=== PATIENT | female | born 1975 | race African-American/Black ===

== ENCOUNTER 2020-12-26 07:06 | Emergency (ER) | payer OTHER ==
[~2020-12-26] VITALS: Ht 175.3 cm; Wt 72.6 kg
[2020-12-26 07:10] VITALS: BP 140/106
[2020-12-26] MEDS ORDERED: LORazepam 2 MG/ML VIAL IVP ONE (07:35)
[2020-12-26] MEDS ORDERED: chlordiazePOXIDE 25 MG CAP PO SCH ×2 (07:35→09:00)
[2020-12-26] MEDS ORDERED: chlordiazePOXIDE 25 MG CAP ONE (08:01)
[2020-12-26] MEDS ORDERED: NACL 0.9% 2,000 ML IV SCH (09:10)
[2020-12-26] MEDS ORDERED: LORazepam 1 MG TAB PO ONE (10:35)
[2020-12-26 11:00] VITALS: BP 126/79
== END 2020-12-26 11:29 | disposition home or self-care (01) ==
LOC: MED 07:06
DX: F10.129 Alcohol abuse with intoxication, unspecified (principal); R11.10 Vomiting, unspecified; Y90.9 Presence of alcohol in blood, level not specified
CPT/HCPCS: 96361; 96374; 99283; J2060

== ENCOUNTER 2020-12-27 00:15 | Emergency (ER) | payer OTHER ==
[~2020-12-27] VITALS: Ht 175.3 cm; Wt 72.6 kg
[2020-12-27 00:26] VITALS: BP 136/98
--- NOTE | 2020-12-27 00:26 | NUR ---
TO BED AMBULATORY
--- NOTE | 2020-12-27 00:33 | NUR ---
RECEIVED IN BED 4, AMBULATORY, WITH C/O LEFT KNEE PAIN. Addendum: 12/27/20 at 0036 by DEEJAY RECEIVED IN BED 4 VIA W/C FROM TRIAGE WITH C/O RIGHT KNEE PAIN AFTER FALLING DOWN STAIRS. WAS SEEN YESTERDAY AM FOR C/O " HELP WITH ALCOHOL WITHDRAWAL". IS AMBULATORY, IN NAD.
[2020-12-27] MEDS: KETOROLAC 60 MG/2 ML VIAL IM ONE (00:54)
--- NOTE | 2020-12-27 01:02 | NUR ---
PORTABLE XRAY DONE
--- NOTE | 2020-12-27 01:13 | NUR ---
AMBULATES TO BR WITH STEADY GAIT
--- NOTE | 2020-12-27 01:20 | NUR ---
PT REFUSED AND DENIED INTERVENTIONS. DENIED COPIES OF ACI AND RX
[2020-12-27 01:23] VITALS: BP 136/98
--- NOTE | 2020-12-27 01:23 | NUR ---
Patient discharged with v/s stable. Written and verbal after care instructions given and explained. Patient alert, oriented and verbalized understanding of instructions. Ambulatory with steady gait. All questions addressed prior to discharge. ID band removed. Patient advised to follow up with PMD. Rx of MOTRIN given. Patient educated on indication of medication including possible reaction and side effects. Opportunity to ask questions provided and answered. Addendum: 12/27/20 at 0130 by DEEJAY Patient discharged with v/s stable. Written and verbal after care instructions given and explained. Patient alert, oriented and verbalized understanding of instructions. Ambulatory with steady gait. All questions addressed prior to discharge. ID band removed. Patient advised to follow up with PMD. Rx of MOTRIN REFUSED. Patient educated on indication AND BENEFIT of medication including possible reaction and side effects. Opportunity to ask questions.
== END 2020-12-27 01:23 | disposition home or self-care (01) ==
LOC: MED 00:15
DX: S86.911A Strain of unspecified muscle(s) and tendon(s) at lower leg level, right leg, initial encounter (principal); W18.39XA Other fall on same level, initial encounter; Y93.89 Activity, other specified; Y92.89 Other specified places as the place of occurrence of the external cause; Y99.8 Other external cause status
CPT/HCPCS: 73562; 96372; 99283; J1885

== ENCOUNTER 2021-01-21 00:45 | Emergency (ER) | payer OTHER ==
[~2021-01-21] VITALS: Ht 175.3 cm; Wt 61.2 kg
[2021-01-21 00:53] VITALS: BP 94/62
--- NOTE | 2021-01-21 01:00 | NUR ---
PT AMBULATED TO BED #6
--- NOTE | 2021-01-21 01:15 | NUR ---
45 Y/O FEMALE C/O INSOMINA X3 DAYS. INCREASE IN ALCHOL CONSUMPTION. DENIES RECREATIONAL DRUGS. PT STATES 10/10 BURNING PAIN ALL OVER. PT STATES SHE IS CURRENTLY HAVING AN ANXIETY ATTACK MEDHX- HTN, DEPRESSION, PTSD, SLEEP DISORDER. TIERNEY
--- NOTE | 2021-01-21 01:20 | NUR ---
Dr. Ewing examining patient.
[2021-01-21] MEDS ORDERED: diphenhydrAMINE 50 MG/ML VIAL IM ONE (01:25)
[2021-01-21] MEDS ORDERED: PROCHLORPERAZINE 10 MG/2 ML VIAL IM ONE (01:25)
[2021-01-21 02:00] VITALS: BP 94/62
--- NOTE | 2021-01-21 02:00 | NUR ---
Patient discharged with v/s stable. Written and verbal after care instructions given and explained. Patient verbalized understanding. Ambulatory with steady gait. All questions addressed prior to discharge. Advised to follow up with PMD.
== END 2021-01-21 02:00 | disposition home or self-care (01) ==
LOC: MED 00:45
DX: G47.00 Insomnia, unspecified (principal); M79.10 Myalgia, unspecified site
CPT/HCPCS: 96372; 99284; J0780; J1200

== ENCOUNTER 2021-01-21 19:22 | Emergency (ER) | payer OTHER ==
[~2021-01-21] VITALS: Ht 175.3 cm; Wt 74.8 kg
[2021-01-21 19:27] VITALS: BP 121/77
[2021-01-21] MEDS ORDERED: NACL 0.9% 1,000 ML IV ONE (19:35)
[2021-01-21] MEDS ORDERED: KETOROLAC 30 MG/ML VIAL IVP ONE (20:00)
[2021-01-21] MEDS ORDERED: diphenhydrAMINE 50 MG/ML VIAL ONE (20:52)
[2021-01-21] MEDS ORDERED: diphenhydrAMINE 50 MG/ML VIAL IVP ONE (20:55)
[2021-01-21 21:28] VITALS: BP 121/77
== END 2021-01-21 21:28 | disposition home or self-care (01) ==
LOC: MED 19:22
DX: M79.10 Myalgia, unspecified site (principal); R50.9 Fever, unspecified
CPT/HCPCS: 96361; 96374; 96375; 99284; J1200; J1885; J7030

== ENCOUNTER 2021-02-07 08:31 | Emergency (ER) | payer OTHER ==
[~2021-02-07] VITALS: Ht 175.3 cm; Wt 73.9 kg
[2021-02-07 08:39] VITALS: BP 121/77
[2021-02-07] MEDS ORDERED: NACL 0.9% 1,000 ML IV ONE ×2 (09:10→10:10)
[2021-02-07] MEDS ORDERED: KETOROLAC 30 MG/ML VIAL IVP ONE (09:10)
[2021-02-07 09:23] LABS: BASOPHILS % (AUTO) 1.3 % (0.0-2.0); EOSINOPHILS % (AUTO) 0.6 % (0.0-4.0); HEMATOCRIT 40.5 % (36-48); HEMOGLOBIN 13.8 g/dL (12.0-16.0); LYMPHOCYTES # (AUTO) 1.9 K/uL (2.5-16.5); LYMPHOCYTES % (AUTO) 49.9 % (20.5-51.1); MEAN CORPUSCULAR HEMOGLOBIN 32 pg (27-31); MEAN CORPUSCULAR HGB CONC 34 g/dL (33-37); MEAN CORPUSCULAR VOLUME 93.9 fL (80-94); MONOCYTES # (AUTO) 0.4 K/uL (0.8-1.0); MONOCYTES % (AUTO) 9.4 % (1.7-9.3); NEUTROPHILS # (AUTO) 1.5 K/uL (1.8-7.7); NEUTROPHILS % (AUTO) 38.8 % (42.2-75.2); PLATELET COUNT (AUTO) 271 K/uL (140-450); RED BLOOD CELL COUNT(AUTO) 4.32 MIL/uL (4.20-5.40); RED CELL DISTRIBUTION WIDTH 16.5 % (11.6-13.7); WHITE BLOOD COUNT (AUTO) 3.8 K/uL (4.8-10.8)
[2021-02-07 09:39] LABS: ALBUMIN 3.7 g/dL (3.4-5.0); ANION GAP 15.5 (8-16); ASPARTATE AMINOTRANSFERASE 48 U/L (15-37); CARBON DIOXIDE 25.6 mmol/L (21-32); CHLORIDE 101 mmol/L (98-107); GFR ARICAN-AMERICAN 77 mL/min (>90); GLUCOSE 90 mg/dL (74-106); POTASSIUM 4.1 mmol/L (3.5-5.1); SODIUM SERUM 138 mmol/L (136-145); UREA NITROGEN, BLOOD 17 mg/dL (7-18)
--- NOTE | 2021-02-07 09:47 | NUR ---
45 YEAR OLD FEMALE STATES THAT SHE HAS BEEN DRINKING ALOT MORE ALCOHOL LATELY, ESPECIALLY THE LAST 4 DAYS. PT STATES THAT SHE WANTS HELP AND HAS BEEN UNABLE TO EAT OR DRINK ANYTHING. PT STATES ALOT OF BODYACHES AND PAIN. PT AOX4, BREATHING EVEN AND UNLABORED, SKIN WARM AND DRY. BED IN LOWEST POSITION, LOCKED, BED RAIL UPX1. PMH - DENIES ALLERGIES - NKA
[2021-02-07 10:01] LABS: ACETAMINOPHEN < 0.5 ug/ml (10-30); SALICYLATE < 2.8 mg/dL (2.8-20.0)
--- NOTE | 2021-02-07 10:29 | NUR ---
PT STILL UNABLE TO URINATE, ERMD MADE AWARE
[2021-02-07] MEDS ORDERED: NAPR-54 PO (10:41)
[2021-02-07 10:59] LABS: BARBITURATE, URINE NEGATIVE ng/ml (NEG <=200); BENZODIAZEPINE, URINE POSITIVE ng/mL (NEG <=200); CANNABINOID, URINE NEGATIVE ng/mL (NEG <=50); COCAINE, URINE NEGATIVE ng/mL (NEG <=300); OPIATE, URINE NEGATIVE ng/mL (NEG <=2000); PHENCYCLIDINE SCREEN,URINE NEGATIVE ng/mL (NEG <=25)
[2021-02-07 11:24] VITALS: BP 121/77
--- NOTE | 2021-02-07 11:25 | NUR ---
Patient discharged with v/s stable. Written and verbal after care instructions given and explained. Patient alert, oriented and verbalized understanding of instructions. Ambulatory with steady gait. All questions addressed prior to discharge. ID band removed. Patient advised to follow up with PMD. Rx of NAPROXEN 500MG PO PRN PAIN given. Patient educated on indication of medication including possible reaction and side effects. Opportunity to ask questions provided and answered.
--- NOTE | 2021-02-10 08:09 | NUR ---
LATE ENTRY -- NS INFUSION COMPLETED 1113 02/07/21
== END 2021-02-07 11:25 | disposition home or self-care (01) ==
LOC: MED 08:31
DX: F10.129 Alcohol abuse with intoxication, unspecified (principal); R53.1 Weakness; Z79.899 Other long term (current) drug therapy
CPT/HCPCS: 36415; 80053; 80305; 85025; 93005; 96361; 96374; 99284; G0480; G0482; J1885; J7030

== ENCOUNTER 2021-07-08 06:50 | Emergency (ER) | payer OTHER ==
[~2021-07-08] VITALS: Ht 172.7 cm; Wt 69.9 kg
[~2021-07-08 06:50] MED LIST: NAPR-54 PO
[2021-07-08 07:16] VITALS: BP 144/114
--- NOTE | 2021-07-08 07:20 | NUR ---
PT TO LOBBY.
--- NOTE | 2021-07-08 07:24 | NUR ---
45 Y/O FEMALE C/O BODY PAIN 09/04 STATES HER FRIEND GAVE HER SOME "JELLY-LIKE SUBSTANCE" FOR ALCOHOL WITHDRAWS. DENIES N/V, DENIES FEVER/CHILLS. PT UNABLE TO RECALL WHAT WAS GIVEN. STATES SHE USUALLY DRINKS 2 BOTTLES OF WINE A DAY. PMH: DEPRESSION NKA
[2021-07-08] MEDS ORDERED: KETOROLAC 30 MG/ML VIAL IVP ONE (07:55)
[2021-07-08] MEDS ORDERED: NACL 0.9% 1,000 ML IV ONE (07:55)
--- NOTE | 2021-07-08 07:58 | NUR ---
DR. QUICK WITH PT IN [facility] FOR ASSESSMENT.
--- NOTE | 2021-07-08 08:01 | NUR ---
PT TO ASHISH William
[2021-07-08] MEDS ORDERED: LORazepam 2 MG/ML VIAL IVP ONE (08:35)
[2021-07-08] MEDS ORDERED: LORazepam 2 MG/ML VIAL ONE (08:35)
--- NOTE | 2021-07-08 08:58 | NUR ---
Pt ambulated from chair A to bed 12.
--- NOTE | 2021-07-08 10:39 | NUR ---
Patient reports minor relief after Toradol IVP; states 7/10 to overall body pain but reports L hip pain remains 10/10.
[2021-07-08] MEDS ORDERED: MORPHINE SULFATE 4 MG/ML SYR IVP ONE (10:50)
[2021-07-08] MEDS ORDERED: MORPHINE SULFATE 4 MG/ML SYR ONE (10:50)
--- NOTE | 2021-07-08 11:00 | NUR ---
Patient states minor relief to pain; L hip remains 09/04 "burning/constant." Pt reports taking a "jelly-like substance" indicated for headache which has caused this consistent L hip pain.
--- NOTE | 2021-07-08 12:08 | NUR ---
Patient disconnected from IVF and pvc monitor; ambulated to restroom with steady/even gait.
--- NOTE | 2021-07-08 12:13 | NUR ---
Pt back onto [facility], conveyor monitor and IVF.
--- NOTE | 2021-07-08 12:16 | NUR ---
Dr. Phillip made aware of patient's 10/10 L hip pain; denies recent trauma/falls/injury.
--- NOTE | 2021-07-08 12:17 | NUR ---
Dr. Phillip is reevaluating patient at bedside.
[2021-07-08] MEDS ORDERED: IBUP-2213 PO (12:34)
[2021-07-08] MEDS ORDERED: LIB25 PO (12:34)
[2021-07-08 13:08] VITALS: BP 133/76
--- NOTE | 2021-07-08 13:08 | NUR ---
Patient discharged with v/s stable. Written and verbal after care instructions given and explained. Patient alert, oriented and verbalized understanding of instructions. Ambulatory with steady gait. All questions addressed prior to discharge. ID band removed. Patient advised to follow up with PMD. Rx of Librium, Ibuprofen given. Patient educated on indication of medication including possible reaction and side effects. Opportunity to ask questions provided and answered.
[2021-07-08] MEDS ORDERED: ATA25 PO (14:23)
== END 2021-07-08 13:08 | disposition home or self-care (01) ==
LOC: MED 06:50
DX: M79.10 Myalgia, unspecified site (principal); R11.2 Nausea with vomiting, unspecified; Z79.899 Other long term (current) drug therapy
CPT/HCPCS: 96361; 96374; 96375; 99284; J1885; J2060; J2270; J7030

== ENCOUNTER 2021-07-17 07:39 | Emergency (ER) | payer OTHER ==
[~2021-07-17] VITALS: Ht 172.7 cm; Wt 68.0 kg
[~2021-07-17 07:39] MED LIST changes: +ATA25 PO; +IBUP-2213 PO
[2021-07-17 07:43] VITALS: BP 93/48
[2021-07-17] MEDS ORDERED: LORazepam 1 MG TAB PO ONE (08:00)
--- NOTE | 2021-07-17 08:00 | NUR ---
BIB SELF C/O BODY PAIN, NAUSEA S/P ALCOHOL WITHDRAWAL X 5 DAYS.
--- NOTE | 2021-07-17 08:17 | NUR ---
Maura clay in [facility] - 07/17/21 at 0821 by [email or web address] CHRISTOPHER
--- NOTE | 2021-07-17 08:20 | NUR ---
Maura clay in ED - 07/17/21 at 0838 by MED1 PATIENT ELOPED FROM FACILITY. DISCHARGE INSTRUCTIONS NOT GIVEN TO PATIENT. DR. HERNANDEZ NOTIFIED.
--- NOTE | 2021-07-17 08:49 | NUR ---
PT BACK TO ER. TO ASHISH Shen FOR FURTHER EVALUATION.
[2021-07-17] MEDS ORDERED: NACL 0.9% 1,000 ML IV ONE (08:50)
--- NOTE | 2021-07-17 10:12 | NUR ---
Pt wheelchair assisted from Chair A to bed 07.
--- NOTE | 2021-07-17 10:29 | NUR ---
COLLECTD LABWORK, WALKED TO LAB GAVE TO SARAHI OLMSTEAD TECH.
[2021-07-17 10:43] LABS: BASOPHILS # (AUTO) 0.1 K/uL (0.00-0.22); HEMATOCRIT 40.9 % (36-48); HEMOGLOBIN 13.4 g/dL (12.0-16.0); LYMPHOCYTES # (AUTO) 1.5 K/uL (2.5-16.5); LYMPHOCYTES % (AUTO) 28.5 % (20.5-51.1); MEAN CORPUSCULAR HEMOGLOBIN 34 pg (27-31); MEAN CORPUSCULAR HGB CONC 33 g/dL (33-37); MEAN CORPUSCULAR VOLUME 103.6 fL (80-94); MONOCYTES # (AUTO) 0.4 K/uL (0.8-1.0); MONOCYTES % (AUTO) 8.3 % (1.7-9.3); NEUTROPHILS # (AUTO) 3.3 K/uL (1.8-7.7); NEUTROPHILS % (AUTO) 62.2 % (42.2-75.2); PLATELET COUNT (AUTO) 232 K/uL (140-450); RED BLOOD CELL COUNT(AUTO) 3.94 MIL/uL (4.20-5.40); RED CELL DISTRIBUTION WIDTH 15.6 % (11.6-13.7); WHITE BLOOD COUNT (AUTO) 5.3 K/uL (4.8-10.8)
--- NOTE | 2021-07-17 10:50 | NUR ---
PT STATES SHE WANTS TO AMA, DR. HERNANDEZ MADE AWARE. PT STATES SHE WANTS "SOMETHING FOR PAIN BEFORE AMA".
[2021-07-17 10:56] LABS: ALBUMIN 3.6 g/dL (3.4-5.0); ANION GAP 23.4 (8-16); CARBON DIOXIDE 18.1 mmol/L (21-32); CREATININE 0.9 mg/dL (0.6-1.3); POTASSIUM 4.5 mmol/L (3.5-5.1); TOTAL BILIRUBIN 0.9 mg/dL (0.0-1.0)
[2021-07-17] MEDS ORDERED: KETOROLAC 15 MG/ML VIAL ONE (11:00)
[2021-07-17] MEDS ORDERED: KETOROLAC 30 MG/ML VIAL IVP ONE (11:00)
[2021-07-17 11:11] VITALS: BP 119/72
--- NOTE | 2021-07-17 11:12 | NUR ---
Patient does not wish to proceed with medical care recommended by DR. HERNANDEZ. Patient given information related to possible complications, up to and including , which could occur as a result of leaving hospital at this time. Patient verbalizes understanding of risks involved leaving against medical advice. Patient has signed AMA form.
--- NOTE | 2021-07-19 23:12 | NUR ---
LATE ENTRY- 0.9% NS IVF DISCONTINUED AT 1110
== END 2021-07-17 11:12 | disposition left against medical advice (07) ==
LOC: MED 07:39
DX: F10.129 Alcohol abuse with intoxication, unspecified (principal); Y90.9 Presence of alcohol in blood, level not specified
CPT/HCPCS: 36415; 80053; 84703; 85025; 96361; 96374; 99285; G0482; J1885; J7030

== ENCOUNTER 2022-03-17 04:51 | Emergency (ER) | payer OTHER ==
[~2022-03-17] VITALS: Ht 175.3 cm; Wt 79.4 kg
[2022-03-17 04:54] VITALS: BP 118/88
--- NOTE | 2022-03-17 05:00 | NUR ---
PT TAKEN TO ER BED 04
--- NOTE | 2022-03-17 05:09 | NUR ---
VENUS LEGER AT BEDSIDE EXAMINING PT.
[2022-03-17] MEDS ORDERED: ACETAMINOPHEN 325 MG TAB PO ONE (05:10)
[2022-03-17] MEDS ORDERED: KETOROLAC 60 MG/2 ML VIAL IM ONE (05:10)
--- NOTE | 2022-03-17 05:11 | NUR ---
46 Y/O FEMALE BIBS, C/O BILATERAL LEG PAIN X1 WEEK. PATIENT PRESENTS TO ED AMBULATORY, NO REDNESS, AND NO SWELLING. PT STATES HER PAIN IS SHARP AND RADIATES FROM MID THIGH TO CALVES; IT HAS BEEN GOING ON FOR ABOUT A WEEK BUT GOT STRONGER THE LAST THREE DAYS. PT CLAIMS THAT "THE NICOTINE FROM VAPING IS CAUSING THE PAIN." DENIES N/V/D; SKIN IS PINK/WARM/DRY; AAOX4 WITH EVEN AND STEADY GAIT; LUNGS CLEAR BL; HR EVEN AND REGULAR; PT DENIES ANY FEVER, CP, SOB, OR COUGH AT THIS TIME; PATIENT STATES PAIN OF 10/10 AT THIS TIME; VSS; PATIENT POSITIONED FOR COMFORT; HOB ELEVATED; BEDRAILS UP X2; BED DOWN. ER MD MADE AWARE OF PT STATUS. HX: ANXIETY NKA
[2022-03-17] MEDS ORDERED: NAPR-54 PO (05:12)
--- NOTE | 2022-03-17 05:40 | NUR ---
PT STATES HER PAIN IS LESSENING DUE TO THE MEDS.
[2022-03-17 05:45] VITALS: BP 118/88
--- NOTE | 2022-03-17 05:46 | NUR ---
Patient discharged with v/s stable. Written and verbal after care instructions given and explained. Patient alert, oriented and verbalized understanding of instructions. Ambulatory with steady gait. All questions addressed prior to discharge. ID band removed. Patient advised to follow up with PMD. Rx of NAPROXEN given. Patient educated on indication of medication including possible reaction and side effects. Opportunity to ask questions provided and answered. VSS, A/OX4, AMBULATORY, UNLABORED BREATHING, AND CALM DEMEANOR.
== END 2022-03-17 05:43 | disposition home or self-care (01) ==
LOC: MED 04:51
DX: M79.605 Pain in left leg (principal); M79.604 Pain in right leg; F17.203 Nicotine dependence unspecified, with withdrawal; Z79.1 Long term (current) use of non-steroidal anti-inflammatories (NSAID); Z79.899 Other long term (current) drug therapy
CPT/HCPCS: 96372; 99283; J1885

== ENCOUNTER 2022-06-17 08:37 | Emergency (ER) | payer OTHER ==
[~2022-06-17] VITALS: Ht 175.3 cm; Wt 76.3 kg
[~2022-06-17 08:37] MED LIST changes: -IBUP-2213 PO
[2022-06-17 08:55] VITALS: BP 149/96
--- NOTE | 2022-06-17 09:06 | NUR ---
PT AMB TO BED 12
--- NOTE | 2022-06-17 09:20 | NUR ---
46 y/o female, pt states she consumed a bottle and a half of wine and was given "candy to help her sleep" from her friend last night. pt states this morning she woke up nauseaous and states, "I have so many drugs in my system, I need medication to get it out". denies any water or food consumption last night or this morning. denies vomiting, diarrhea. skin is pink/warm/dry. a&o x4 with even and steady gait. lungs clear bl, heart rate even and regular. pt denies any fever, cp, sob, or cough at this time. pt states pain is 0/10 at this time. patient positioned for comfort. hob elevated. bed down. ermd made aware of pt. pmh: illict drug use, etoh use nka
--- NOTE | 2022-06-17 09:22 | NUR ---
lwbs at this time, pt states she was using a lot of drugs and did not want to wait in the room at this time, ermd made aware
--- NOTE | 2022-06-17 09:30 | NUR ---
pt is requesting to stay at this time
[2022-06-17] MEDS ORDERED: ONDANSETRON 4 MG ODT PO ONE (09:55)
[2022-06-17] MEDS ORDERED: METOCLOPRAMIDE 10 MG TAB PO ONE (09:55)
--- NOTE | 2022-06-17 09:57 | NUR ---
pt given crackers, juice, water and apple sauce at this time
[2022-06-17] MEDS ORDERED: ONDA-188 SL (09:58)
--- NOTE | 2022-06-17 10:10 | NUR ---
Maura clay in [facility] - 06/17/22 at 1021 by MYLA pt tracey at this time
[2022-06-17 10:11] VITALS: BP 144/90
== END 2022-06-17 10:11 | disposition home or self-care (01) ==
LOC: MED 08:37
DX: F10.129 Alcohol abuse with intoxication, unspecified (principal); F19.10 Other psychoactive substance abuse, uncomplicated; Z79.899 Other long term (current) drug therapy
CPT/HCPCS: 81002; 81025; 99283; J8597; Q0162

== ENCOUNTER 2023-10-07 16:56 | Emergency (ER) | payer OTHER ==
[~2023-10-07] VITALS: Ht 175.3 cm; Wt 82.1 kg
[~2023-10-07 16:56] MED LIST changes: +ONDA-188 SL
[2023-10-07 18:23] VITALS: BP 155/93; PULSE 123; RESP 18; TEMP 97.4; O2SAT 99
[2023-10-07] MEDS ORDERED: GABAPENTIN 300 MG CAP PO ONE (20:15)
[2023-10-07] MEDS ORDERED: chlordiazePOXIDE 25 MG CAP PO ONE ×2 (20:15)
[2023-10-07] MEDS ORDERED: ONDANSETRON 4 MG ODT PO ONE (20:15)
[2023-10-07] MEDS ORDERED: NACL 0.9% 1,000 ML IV ONE (20:25)
[2023-10-07] MEDS ORDERED: ONDA-188 SL (21:26)
[2023-10-07] MEDS ORDERED: GABA300C PO (21:26)
[2023-10-07] MEDS ORDERED: LIB25 PO (21:26)
== END 2023-10-07 20:56 | disposition home or self-care (01) ==
LOC: MED 16:56
DX: F10.239 Alcohol dependence with withdrawal, unspecified (principal); R20.2 Paresthesia of skin; Y90.9 Presence of alcohol in blood, level not specified
CPT/HCPCS: 99284; Q0162